=== PATIENT | female | born 1980 | race Caucasian/White ===

== ENCOUNTER → 2020-11-09 16:50 | Outpatient (CLI) | payer OTHER, SELFPAY ==
--- NOTE | ~2020-11-09 | MM_ITS ---
EXAMINATION: MM scrn albino implant BI w jacqueline HISTORY: Screening mammogram TECHNIQUE: Craniocaudal and mediolateral oblique 3-D tomosynthesis images with implant displacement a nd synthetic 2-D images were generated. Craniocaudal and mediolateral oblique views of the breasts wi thout implant displacement were obtained using full field digital mammography. CAD analysis was submi tted and interpreted. COMPARISON: No prior mammogram is available for comparison at this institution. BREAST PARENCHYMAL COMPOSITION: The breasts are extremely dense, which lowers the sensitivity of mamm ography FINDINGS: There are bilateral subpectoral silicone implants. There is no evidence of suspicious mass, calcification, or architectural distortion to suggest malignancy in either breast. There has been no suspicious interval change. IMPRESSION: 1. No mammographic evidence of malignancy. 2. Recommend routine screening mammography in one year. BI-RADS Category 1: Negative Reviewed, dictated and finalized at location A.
== END ==
PROVIDERS: Visit Provider Nurse Practitioner
DX: Z12.31 Encounter for screening mammogram for malignant neoplasm of breast (principal)
CPT/HCPCS: 77063; 77067

== ENCOUNTER → 2021-11-13 15:56 | Outpatient (CLI) | payer OTHER, SELFPAY ==
--- NOTE | ~2021-11-13 | MM_ITS ---
EXAMINATION: MM scrn albino implant BI w jacqueline HISTORY: Screening mammogram TECHNIQUE: Craniocaudal and mediolateral oblique 3-D tomosynthesis images with implant displacement a nd synthetic 2-D images were generated. Craniocaudal and mediolateral oblique views of the breasts wi thout implant displacement were obtained using full field digital mammography. CAD analysis was submi tted and interpreted. COMPARISON: 11/09/2020, 11/16/2015 BREAST PARENCHYMAL COMPOSITION: The breasts are heterogeneously dense, which may obscure small masses . FINDINGS: RIGHT BREAST: An asymmetry is present in the middle third of the upper breast 5.5 cm from the nipple on the mediolateral oblique view. LEFT BREAST: There is no evidence of suspicious mass, calcification, or architectural distortion to s uggest malignancy. There has been no significant interval change. IMPRESSION: 1. Right breast asymmetry. 2. Additional mammographic views and possible breast ultrasound are recommended. BI-RADS Category 0: Incomplete: Needs additional imaging evaluation. Reviewed, dictated and finalized at location A. IMPRESSION: 1. Right breast asymmetry. 2. Additional mammographic views and possible breast ultrasound are recommended . BI-RADS Category 0: Incomplete: Needs additional imaging evaluation.
== END ==
PROVIDERS: PCP Nurse Practitioner; Visit Provider Nurse Practitioner
DX: Z12.31 Encounter for screening mammogram for malignant neoplasm of breast (principal); R92.8 Other abnormal and inconclusive findings on diagnostic imaging of breast
CPT/HCPCS: 77063; 77067

== ENCOUNTER → 2021-11-24 08:22 | Outpatient (CLI) | payer OTHER, SELFPAY ==
--- NOTE | ~2021-11-24 | MMUS_ITS ---
EXAMINATION: MM diag albino implant RT w jacqueline, US breast RT limited HISTORY: Asymmetries reported in middle third of upper breast 5.5 cm from nipple on MLO view TECHNIQUE: Additional 3-D tomosynthesis images of the right breast were performed and synthetic 2-D i mages were generated. CAD analysis was submitted and interpreted. High resolution upper inner and upp er outer right breast ultrasound was performed. COMPARISON: 11/13/2021 bilateral implant screening mammogram FINDINGS: MAMMOGRAPHIC FINDINGS: No suspicious mass or architectural distortion is detected. ULTRASOUND: Ultrasound imaging of the upper inner and upper outer quadrants was performed. At 3:00 3 cm from the nipple there is a benign appearing circumscribed 1.8 x 2.5 x 2.6 mm sonolucency without internal vascularity or posterior shadowing, likely a small cyst. No suspicious mass or shadowing is detected otherwise. IMPRESSION: 1. No mammographic evidence of malignancy 2. Routine annual mammographic screening is recommended BI-RADS Category 2: Benign finding(s). Reviewed, dictated and finalized at location A. IMPRESSION: 1. No mammographic evidence of malignancy 2. Routine annual mammographic screening is recommended BI-RADS Category 2: Benign finding(s).
== END ==
PROVIDERS: PCP Obstetrics & Gynecology Gynecology; Visit Provider Obstetrics & Gynecology Gynecology
DX: R92.8 Other abnormal and inconclusive findings on diagnostic imaging of breast (principal); N60.01 Solitary cyst of right breast
CPT/HCPCS: 76642; 77061; 77065; G0279

== ENCOUNTER 2022-03-19 14:51 | Emergency (ER) | payer OTHER, SELFPAY ==
[2022-03-19 15:10] VITALS: BP 142/89; PULSE 18; RESP 18; TEMP 36.2; O2SAT 100
--- NOTE | 2022-03-19 22:42 | ED.GENADULT ---
HPI - General Adult General Chief complaint: Upper Respiratory Infection Stated complaint: Sore Throat,Rt Ear Irritation,Congestion History of Present Illness HPI narrative: 41 y/o female. PMHx non-contributory. Presents to [facility] today with acute complaints of cough, sore throat, RT ear pain, & Body aches for the past 48 hours. No fevers. No chest pain, palpitations, dyspnea, edema, hemopytosis. No hearing loss or trauma. No involuntary drooling, dyspnea. No GI upset, N/V/D. Related Data Home Medications Medication Instructions Recorded Confirmed L norgest/EE 1 tablet PO DAILY 03/19/22 03/19/22 0.15-0.02mg/0.15-0.025mg/0.15-0.03mg/EE 0.01 mg tabs,3mo bupropion HCl 150 mg 24 hr tablet, 150 mg PO DAILY 03/19/22 03/19/22 extended release Allergies Allergy/AdvReac Type Severity Reaction Status Date / Time codeine AdvReac Unknown Hives Verified 03/19/22 15:04 Penicillins AdvReac Unknown Hives Verified 03/19/22 15:04 Sulfa (Sulfonamide AdvReac Unknown Rash Verified 03/19/22 15:04 Antibiotics) Review of Systems Review of Systems: All systems reviewed and are negative, unless otherwise noted in HPI & Below: Constitutional: Body aches. HENT: Congestion, RT ear pain, sore throat. RESP: Cough. Exam Narrative: GENERAL: This is a well-nourished, well-developed adult, in no apparent distress. HEAD: normocephalic, atraumatic. EYES: PERRL. Sclera clear/white. EARS: External ears normal, auditory canals clear and without drainage, RT TM Bulging, intact. LT TM normal. NOSE: External nose normal. Positive Rhinorrhea, no obstruction, nares patent. THROAT: Mucous membranes moist, posterior pharynx erythematous. No exudates. NECK: Neck supple, non-tender without lymphadenopathy, masses or thyromegaly. CARDIOVASCULAR: Regular rate and rhythm without murmurs, gallops, or rubs. RESPIRATORY: Upper airway Rhonchi,cleared w/cough. Breath sounds equal bilaterally. No wheezes, rales. GASTROINTESTINAL: Abdomen soft, non-tender, nondistended. Bowel sounds are active. No guarding. SKIN: warm, intact with no suspicious lesions or rash, good texture and turgor. NEURO: Alert, active, and age appropriate. No focal neurologic deficits. EXTREMITIES: Negative. Course Course Level of Care: Express Care Visit Vital Signs Vital signs: Vital Signs Temperature 36.2 C L 03/19/22 15:10 Pulse Rate 18 L 03/19/22 15:10 Respiratory Rate 18 03/19/22 15:10 Blood Pressure 142/89 H 03/19/22 15:10 Pulse Oximetry 100 03/19/22 15:10 Oxygen Delivery Room Air 03/19/22 15:10 Temperature 36.2 C L 03/19/22 15:10 Pulse Rate 18 L 03/19/22 15:10 Respiratory Rate 18 03/19/22 15:10 Blood Pressure 142/89 H 03/19/22 15:10 Pulse Oximetry 100 03/19/22 15:10 Oxygen Delivery Room Air 03/19/22 15:10 Medical Decision Making Differential Diagnosis Differential Diagnosis: Differential Diagnosis: Consideration of the following conditions may be warranted for the presenting problem, they are not final diagnoses: upper respiratory infection, otitis media, sinusitis, RSV viral infection, PNA, bronchitis, pharyngitis, Streptococcal sore throat, COVID-19, Influenza, and other. Vital Signs Vital Signs: Vital Signs Temperature 36.2 C L 03/19/22 15:10 Pulse Rate 18 L 03/19/22 15:10 Respiratory Rate 18 03/19/22 15:10 Blood Pressure 142/89 H 03/19/22 15:10 Pulse Oximetry 100 03/19/22 15:10 Oxygen Delivery Room Air 03/19/22 15:10 Temperature 36.2 C L 03/19/22 15:10 Pulse Rate 18 L 03/19/22 15:10 Respiratory Rate 18 03/19/22 15:10 Blood Pressure 142/89 H 03/19/22 15:10 Pulse Oximetry 100 03/19/22 15:10 Oxygen Delivery Room Air 03/19/22 15:10 The patient has been informed that they may have pre-hypertension or Hypertension based on a BP reading in the clinic. It is recommended that the patient call the primary care provider listed on their discharge instructions
== END 2022-03-19 16:30 | disposition home or self-care (01) ==
PROVIDERS: Emergency Provider Nurse Practitioner Adult Health
DX: J06.9 Acute upper respiratory infection, unspecified (principal); J32.9 Chronic sinusitis, unspecified; Z20.822 Contact with and (suspected) exposure to COVID-19
CPT/HCPCS: 87081; 87426; 87880; 99213; C9803; G0463

== ENCOUNTER 2022-05-20 10:21 | Emergency (ER) | payer OTHER, SELFPAY ==
[2022-05-20 10:30] VITALS: BP 134/79; PULSE 85; RESP 20; TEMP 36.1; O2SAT 100
--- NOTE | 2022-05-20 10:45 | ED.URI ---
HPI - URI/Sore Throat General Chief Complaint: Upper Respiratory Infection Stated Complaint: Sore Throat Time Seen by Provider: 05/20/22 10:46 Source: patient Mode of arrival: ambulatory Limitations: no limitations History of Present Illness HPI Narrative: 41-year-old female presents stating she woke up at 3:00 a.m. this morning with a very sore throat and swelling. States it felt like she could not swallow. She is speaking in full sentences. She is having no difficulty swelling. Afebrile. No other symptoms. No known strep exposure. All systems reviewed and negative except as noted above. Related Data Home Medications Medication Instructions Recorded Confirmed L norgest/EE 1 tablet PO DAILY 03/19/22 05/20/22 0.15-0.02mg/0.15-0.025mg/0.15-0.03mg/EE 0.01 mg tabs,3mo bupropion HCl 150 mg 24 hr tablet, 150 mg PO DAILY 03/19/22 05/20/22 extended release Allergies Allergy/AdvReac Type Severity Reaction Status Date / Time codeine AdvReac Unknown Hives Verified 05/20/22 10:32 Penicillins AdvReac Unknown Hives Verified 05/20/22 10:32 Sulfa (Sulfonamide AdvReac Unknown Rash Verified 05/20/22 10:32 Antibiotics) Review of Systems Review of Systems: CONSTITUTIONAL: Denies fever, chills, or sweats. EYES: Denies visual changes, redness, or discharge. ENT: Denies rhinorrhea, congestion . Reports sore throat. Denies otalgia. CARDIOVASCULAR: Denies chest pain, palpitations, or edema. RESPIRATORY: Denies cough or dyspnea. GASTROINTESTINAL: Denies abdominal pain, nausea, vomiting, or diarrhea. GENITOURINARY: Denies dysuria or hematuria. SKIN: Denies rash or itching. MUSCULOSKELETAL: Denies back pain, joint pain, or myalgia. NEUROLOGIC: Denies headache, numbness, or weakness. PSYCHIATRIC: Denies anxiety or depression. All other systems reviewed are negative, except as documented in HPI. PMFSH Comments At time of signature, agree with nursing past medical, surgical, social and family history. There is no relevant family history pertinent to the presenting complaint. Exam Narrative: GENERAL: This is a well-nourished, well-developed patient, in no apparent distress. HEAD: normocephalic, atraumatic. EYES: PERRL. Sclera clear/white. Vision is grossly intact. EARS: External ears normal, auditory canals clear and without drainage, TMs normal without perforation. Hearing grossly intact. NOSE: External nose normal with no obvious nasal discharge, nares without redness, no rhinorrhea. THROAT: Mucous membranes moist, erythema with mild swelling to posterior pharynx. No exudates or tonsillar swelling. NECK: Neck supple, non-tender with Anterior cervical lymphadenopathy. No masses or thyromegaly. CARDIOVASCULAR: Regular rate and rhythm without murmurs, gallops, or rubs. RESPIRATORY: Clear to auscultation. Breath sounds equal bilaterally. No wheezes, rales, or rhonchi. SKIN: warm, Dry, intact with no suspicious lesions or rash, good texture and turgor. NEURO: awake, alert, and oriented to person, place and time. There were no obvious focal neurologic abnormalities. EXTREMITIES: No joint tenderness, effusion, or edema noted. Course Course Level of Care: Express Care Visit Vital Signs Vital signs: Vital Signs Temperature 36.1 C L 05/20/22 10:30 Pulse Rate 85 05/20/22 10:30 Respiratory Rate 20 05/20/22 10:30 Blood Pressure 134/79 05/20/22 10:30 Pulse Oximetry 100 05/20/22 10:30 Oxygen Delivery Room Air 05/20/22 10:30 Temperature 36.1 C L 05/20/22 10:30 Pulse Rate 85 05/20/22 10:30 Respiratory Rate 20 05/20/22 10:30 Blood Pressure 134/79 05/20/22 10:30 Pulse Oximetry 100 05/20/22 10:30 Oxygen Delivery Room Air 05/20/22 10:30 reviewed MDM - URI/Sore Throat MDM Narrative Medical decision making narrative: Patient is aware of diagnosis, understands and agrees to treatment plan. Anticipatory guidance given. Patient agrees to follow-up as directed and is aware o
== END 2022-05-20 10:54 | disposition home or self-care (01) ==
PROVIDERS: Emergency Provider Nurse Practitioner Family; PCP Internal Medicine
DX: J02.0 Streptococcal pharyngitis (principal)
CPT/HCPCS: 87880; 99213; G0463

== ENCOUNTER → 2023-02-11 14:55 | Outpatient (CLI) | payer OTHER, SELFPAY ==
--- NOTE | ~2023-02-11 | MM_ITS ---
EXAMINATION: MM scrn albino implant BI w jacqueline HISTORY: Screening mammogram TECHNIQUE: Craniocaudal and mediolateral oblique 3-D tomosynthesis images with implant displacement a nd synthetic 2-D images were generated. Craniocaudal and mediolateral oblique views of the breasts wi thout implant displacement were obtained using full field digital mammography. CAD analysis was submi tted and interpreted. COMPARISON: Comparison to multiple prior studies sequentially, with oldest reviewed study dated 11/15. BREAST PARENCHYMAL COMPOSITION: The breasts are heterogeneously dense, which may obscure small masses . FINDINGS: There is no evidence of suspicious mass, calcification, or architectural distortion to sugg est malignancy in either breast. There has been no suspicious interval change. IMPRESSION: 1. No mammographic evidence of malignancy. 2. Recommend routine screening mammography in one year. BI-RADS Category 1: Negative Reviewed, dictated and finalized at location A. WARE RECRUITER
== END ==
PROVIDERS: PCP Nurse Practitioner; Visit Provider Nurse Practitioner
DX: Z12.31 Encounter for screening mammogram for malignant neoplasm of breast (principal)
CPT/HCPCS: 77063; 77067

== ENCOUNTER 2023-04-04 10:23 | Emergency (ER) | payer OTHER, SELFPAY ==
--- NOTE | ~2023-04-04 | XR_ITS ---
EXAMINATION: XR chest 2V 04/04/2023 11:10 INDICATION: Cough and chest tightness. Discomfort. PROCEDURE: 2 view chest COMPARISON: No prior studies for comparison. FINDINGS: The lungs are clear. The cardiomediastinal silhouette is within normal limits. There are no pleural effusions. There is no pneumothorax suspected. IMPRESSION: 1: NO ACUTE CARDIOPULMONARY DISEASE. Reviewed, dictated and finalized at location L. INUITY DIRECTOR
[2023-04-04 10:38] VITALS: BP 140/99; PULSE 79; RESP 16; TEMP 36.3; O2SAT 100
--- NOTE | 2023-04-04 10:51 | ED.URI ---
HPI - URI/Sore Throat General Chief Complaint: Upper Respiratory Infection Stated Complaint: Chest pain;Sore Throat;Cough Time Seen by Provider: 04/04/23 10:45 Source: patient Mode of arrival: ambulatory Limitations: no limitations History of Present Illness HPI Narrative: Nidhi is a 42-year-old female patient presenting to the clinic today with complaints of cough, chest tightness, and sore throat x1 week. He denies any known fever chills. Is coughing up some yellow phlegm. No history of asthma, COPD, or bronchitis. MD elicited complaint: cough, sore throat and nasal congestion Related Data Home Medications Medication Instructions Recorded Confirmed L norgest/EE 1 tablet PO DAILY 03/19/22 04/04/23 0.15-0.02mg/0.15-0.025mg/0.15-0.03mg/EE 0.01 mg tabs,3mo bupropion HCl 150 mg 24 hr tablet, 150 mg PO DAILY 03/19/22 04/04/23 extended release Allergies Allergy/AdvReac Type Severity Reaction Status Date / Time codeine AdvReac Unknown Hives Verified 04/04/23 10:34 Penicillins AdvReac Unknown Hives Verified 04/04/23 10:34 Sulfa (Sulfonamide AdvReac Unknown Rash Verified 04/04/23 10:34 Antibiotics) Review of Systems Review of Systems: Pertinent positives per HPI. Patient denies any fever, chills, rash, headache, visual changes, dizziness, shortness of breath, chest pain, palpitations, nausea, vomiting, diarrhea, constipation, abdominal pain, or any urinary issues. PMFSH Comments At the time of my signature, I reviewed and agree with the nursing past medical, surgical, social, and family history. There is no relevant family history pertinent to the patient complaint. Exam Narrative: General: Well-developed, well nourished, in no apparent distress Head: Normocephalic, atraumatic Eyes: Pupils equally round and reactive to light bilaterally, EOM intact, sclera and conjunctive clear, no discharge, lids normal Ears: TMs intact and congested, ear canals clear, no drainage, grossly hearing normal. Nose: Nares patent, clear nasal discharge, no inflammation, no sinus tenderness. Mouth: Oral pharynx without lesions or masses, good dentition, MMM. Neck: Supple, trachea midline, no enlargement of anterior or posterior cervical nodes, no thyroid masses or goiter palpable. Cardio: Regular rate and rhythm, s1 and s2 normal, no murmur appreciated. Resp: Clear to auscultation bilaterally, no rhonchi, rales, wheezing or rubs Course Course Emergency Course: Portions of this record may have been created with voice recognition software. Level of Care: Express Care Visit Vital Signs Vital signs: Vital Signs Temperature 36.3 C L 04/04/23 10:38 Pulse Rate 79 04/04/23 10:38 Respiratory Rate 16 04/04/23 10:38 Blood Pressure 140/99 H 04/04/23 10:38 Pulse Oximetry 100 04/04/23 10:38 Temperature 36.3 C L 04/04/23 10:38 Pulse Rate 79 04/04/23 10:38 Respiratory Rate 16 04/04/23 10:38 Blood Pressure 140/99 H 04/04/23 10:38 Pulse Oximetry 100 04/04/23 10:38 Vital signs reviewed MDM - URI/Sore Throat MDM Narrative Medical decision making narrative: At the time of visit patient is resting comfortably on the exam table. Patient appears to be nontoxic. Chest x-ray was performed and was negative for any pneumonia. Prescription for albuterol inhaler and prednisone was sent to the pharmacy. Supportive measures were discussed with the patient and they voiced understanding discharge instructions and agrees to treatment plan. Return precautions reviewed Differential Diagnosis Differential diagnosis: Likely upper respiratory infection, otitis media, sinusitis, viral infection, bronchitis, influenza, pharyngitis and other (COVID) Imaging Data Radiologist's impression: ITS Impressions Chest X-Ray 04/04/23 11:15 IMPRESSION: 1: NO ACUTE CARDIOPULMONARY DISEASE. Discharge Plan Discharge Clinical Impression: Upper respiratory infection Qualifiers: URI
== END 2023-04-04 11:32 | disposition home or self-care (01) ==
PROVIDERS: Emergency Provider Nurse Practitioner Family
DX: J06.9 Acute upper respiratory infection, unspecified (principal); Z79.899 Other long term (current) drug therapy
CPT/HCPCS: 71046; 99213; G0463